=== PATIENT | male | born 1955 ===

== ENCOUNTER 2024-08-21 06:17 | Day surgery (SDC) | payer MEDICARE, BC, SELFPAY ==
[2024-08-21 07:27] LABS: Glucose - Point of Care 156 mg/dl (70-99)
== END 2024-08-21 09:14 | disposition home or self-care (01) ==
LOC: GI 06:17
PROVIDERS: ATTENDING PHYSICIAN Internal Medicine Gastroenterology
DX: Z12.11 Encounter for screening for malignant neoplasm of colon (principal); K64.8 Other hemorrhoids; D12.2 Benign neoplasm of ascending colon; D12.5 Benign neoplasm of sigmoid colon
CPT/HCPCS: 45385; 88305; 82962